=== PATIENT | female | born 1970 | race Hispanic/Latino ===

== ENCOUNTER 2024-06-29 00:11 | Emergency (ER) | payer BC ==
[~2024-06-29] VITALS: Ht 165.1 cm; Wt 77.1 kg
[2024-06-29 01:47] VITALS: PULSE 65; RESP 18; TEMP 97.8; O2SAT 98
[2024-06-29] MEDS ORDERED: ZITHROMAX250 MG PO (01:49)
[2024-06-29] MEDS ORDERED: BENZONATATE100 MG PO (01:52)
[2024-06-29] MEDS: AZITHROMYCIN 250 MG TAB PO ONE (02:01)
== END 2024-06-29 02:05 | disposition home or self-care (01) ==
LOC: FSED 00:20
DX: R05.9 Cough, unspecified (principal); J40 Bronchitis, not specified as acute or chronic; I10 Essential (primary) hypertension; Z11.52 Encounter for screening for COVID-19
CPT/HCPCS: 0223U; 71046; 87400; 99283